=== PATIENT | female | born 1980 | race Caucasian/White ===

== ENCOUNTER 2024-02-02 20:50 | Emergency (ER) | payer OTHER, SELFPAY ==
[2024-02-02 20:53] VITALS: BP 117/81
[2024-02-02 21:05] LABS: % Basophils 0.7 % (0-2); % Eosinophils 3.8 % (0-6); % Immature Granulocytes 0.3 % (0-0.5); % Lymphocytes 25.5 % (20.5-51.1); % Monocytes 5.3 % (1.7-9.3); % Neutrophils 64.4 % (42.2-75.2); Absolute Basophils 0.1 10^3/uL (0-0.2); Absolute Eosinophils 0.3 10^3/uL (0-0.7); Absolute Lymphocytes 1.9 10^3/uL (1.2-3.4); Absolute Monocytes 0.4 10^3/uL (0.1-0.6); Absolute Neutrophils 4.8 10^3/uL (1.4-6.5); Hematocrit 33.2 % (37.0-47.0); Hemoglobin 11.4 g/dL (12.0-16.0); Mean Corp Hgb Conc. 34.3 g/dL (33.0-37.0); Mean Corpuscular Hgb 29.3 pg (27.0-31.0); Mean Corpuscular Volume 85.3 fL (81.0-99.0); Mean Platelet Volume 9.6 fL (7.4-10.4); Nucleated Red Blood Cells % 0 %; Platelet Count 269 10^3/uL (130-400); Red Blood Cell Count 3.89 10^6/uL (4.20-5.40); White Blood Cell Count 7.4 10^3/uL (4.8-10.8)
[2024-02-02 21:23] LABS: HCG, Serum Qualitative Screen Negative
[2024-02-02 21:27] LABS: ALT (SGPT) 25 U/L (0-35); AST (SGOT) 29 U/L (14-36); Albumin 4.4 g/dl (3.5-5.0); Alkaline Phosphatase 126 U/L (38-126); Blood Urea Nitrogen 15 mg/dl (7-17); Calcium 9.6 mg/dl (8.4-10.2); Carbon Dioxide 27 mmol/L (22-30); Chloride 104 mmol/L (98-107); Glucose 106 mg/dl (70-99); Lipase 223 U/L (23-300); Potassium 4.1 mmol/L (3.5-5.1); Sodium 140 mmol/L (135-145); Total Bilirubin 0.2 mg/dl (0.2-1.3); Total Protein 7.6 g/dl (6.3-8.2); eGFR > 60.00
[2024-02-02 22:00] VITALS: BP 114/85
[2024-02-02 22:10] VITALS: BMI 27.9
--- NOTE | 2024-02-02 22:17 | ED.GENMED ---
History of Present Illness
<DESIREE Marti - Last Filed: 02/02/24 22:27>
General
Chief Complaint: Abdominal Symptoms
Source: patient
Time Seen by Provider: 02/02/24 21:59
Travel History
Have you had any contact with someone who has COVID-19?: No
Do you have any symptoms of coronavirus? Fever > 100 degrees, chills, cough, shortness of breath, sore throat, loss of taste or smell, muscle aches, or headache?: No
History of Present Illness
History of Present Illness:
43 year old female with no significant past medical hx who presents with intermittent mid-lower abdominal pain that began 2 days ago. Pain is sharp and 6/10 in strength on palpation. Pt states pain began with her period on Saturday. Her usual
menstrual pain is with lower back pain and some mild abdominal cramping. Pain is worsened with walking, laughing, and palpation. She takes ibuprofen for pain with moderate relief. Last dose was yesterday. She reports associated decreased appetite
and states she feels tired. She had a BM this morning and states she had to strain. Reports mild lower back pain, which she attributes to her menses. Denies fevers/chills, n/v/d, flank pain, dysuria, chest pain, SOB. Denies recent strenuous
activity. Periods have been regular. She has a hx of c/s in 2013. Pt works in finance.
Review of Systems
<DESIREE Marti - Last Filed: 02/02/24 22:27>
Review of Systems
Allergies reviewed?: Yes
All Other Systems: ROS reviewed and negative except as documented in HPI and ROS
Constitutional: Reports fatigue
EENT: Reports no symptoms
Respiratory: Reports no symptoms
Cardiac: Reports no symptoms
ABD/GI: Reports abdominal pain
: Reports no symptoms
Musculoskeletal: Reports back pain (lower)
Skin: Reports no symptoms
Neurological: Reports no symptoms
Endocrine: Reports no symptoms
Hematologic/Lymphatic: Reports no symptoms
Psychiatric: Reports no symptoms
Phy Exam
<RemyDESIREE Lopes - Last Filed: 02/02/24 22:27>
General Physical Exam
General Presentation: no apparent distress and other (mildly weak-appearing)
General age: appears stated age
General Skin: warm
General Habitus: normal
General Mental: alert
General Hydration: appears well hydrated
Cardiovascular Exam
Cardiovascular Exam: regular rate/rhythm, no edema, no gallop and no murmur
Pulmonary Exam
Pulmonary Exam: lungs clear, no respiratory distress, no rales, no crackles, no rhonchi, no wheezing and no cough
Gastrointestinal Exam
Gastrointestinal Exam: normal bowel sounds, soft, no pulsatile mass and non distended
Palpation: right lower quadrant: Severe tenderness (negative Rovsings, Psoas, Obturator sign)
Neurological Exam
Neurological Exam: alert and oriented x3
Skin Exam
Skin Exam: normal color and warm/dry
Psychiatric Exam
Psychiatric Exam: normal mood/affect
Course
<DESIREE Marti - Last Filed: 02/02/24 22:27>
Orders/Labs/Results
Orders:
Orders
02/02/24 20:54
Test Result ONCE
02/02/24 20:59
Beta Hcg Serum Qualitative Screen [HCG, Serum Qualitative Screen] Urgent
Complete Blood Count/With Diff Urgent
Comprehensive Metabolic Panel Urgent
Lipase Urgent
02/02/24 22:30
0.9% Sodium Chloride 1000 ml [Nss] 1,000 ml IV BOLUS
Ketorolac [Toradol] 30 mg IV NOW STA
02/03/24 00:00
CT Abd/pelvis W Iv Cont Urgent
Reason For Exam: 2 d RLQ, suprapubic abd pain
02/03/24 01:01
US Pelvis W Transvag Combined Urgent
Reason For Exam: 3 day hx pelvic pain, RLQ pain
Abnormal Lab Results
02/02/24
20:59
RBC 3.89 L 10^6/uL
(4.20-5.40)
Hgb 11.4 L g/dL
(12.0-16.0)
Hct 33.2 L %
(37.0-47.0)
Glucose 106 H mg/dl
(70-99)
02/02/24 20:59
02/02/24 20:59
Vital Signs
Initial and Last Documented VS:
Initial Vital Signs
Temp Pulse Resp BP Pulse Ox
98.3 F 72 18 117/81 97
02/02/24 20:53 02/02/24 20:53 02/02/24 20:53 02/02/24 20:53 02/02/24 20:53
Last Documented Vital Signs
Temp Pulse Resp BP Pulse Ox
98.3 F 50 17 132/92 99
02/02/24 20:53 02/03/24 02:14 02/03/24 02:14 02/03/24 02:14 02/03/24 02:14
<Julia Yarbrough, DO - Last Filed: 02/03/24 04:17>
Orders/Labs/Results
Orders:
Orders
02/02/24 20:54
Test Result ONCE
02/02/24 20:59
Beta Hcg Serum Qualitative Screen [HCG, Serum Qualitative Screen] Urgent
Complete Blood Count/With Diff Urgent
Comprehensive Metabolic Panel Urgent
Lipase Urgent
02/02/24 22:30
0.9% Sodium Chloride 1000 ml [Nss] 1,000 ml IV BOLUS
Ketorolac [Toradol] 30 mg IV NOW STA
02/03/24 00:00
CT Abd/pelvis W Iv Cont Urgent
Reason For Exam: 2 d RLQ, suprapubic abd pain
02/03/24 01:01
US Pelvis W Transvag Combined Urgent
Reason For Exam: 3 day hx pelvic pain, RLQ pain
Abnormal Lab Results
02/02/24
20:59
RBC 3.89 L 10^6/uL
(4.20-5.40)
Hgb 11.4 L g/dL
(12.0-16.0)
Hct 33.2 L %
(37.0-47.0)
Glucose 106 H mg/dl
(70-99)
02/02/24 20:59
02/02/24 20:59
Vital Signs
Initial and Last Documented VS:
Initial Vital Signs
Temp Pulse Resp BP Pulse Ox
98.3 F 72 18 117/81 97
02/02/24 20:53 02/02/24 20:53 02/02/24 20:53 02/02/24 20:53 02/02/24 20:53
Last Documented Vital Signs
Temp Pulse Resp BP Pulse Ox
98.3 F 50 17 132/92 99
02/02/24 20:53 02/03/24 02:14 02/03/24 02:14 02/03/24 02:14 02/03/24 02:14
<DESIREE Marti - Last Filed: 02/02/24 22:27>
MDM/Problems Addressed
Differential Diagnosis Includes:
appendicitis, ovarian cyst, ovarian torsion, SBO, abdominal muscle strain
MDM/Problems Addressed:
43 year old female who presents with mid-lower abdominal pain that began 2 days ago.
<DESIREE Marti - Last Filed: 02/02/24 22:27>
*Critical Care Note
Total Time (30-74mins, 75-104mins- exclusive of procedures): Not Applicable
<Julia Yarbrough DO - Last Filed: 02/03/24 04:17>
*Radiology
Radiology exam reviewed: radiology read reviewed
*Pulse Oximetry
Patient hypoxic: no
ED Attending Note
<Radha BlankenshipDESIREE glass - Last Filed: 02/02/24 22:27>
-
Portions of this chart may have been created with voice recognition software.� Occasional wrong word or��sound alike� substitutions may have occurred due to the inherent limitations of voice recognition software.
<Julia Yarbrough DO - Last Filed: 02/03/24 04:17>
ED Attending Note
Patient seen and examined by attending physician: Yes
I performed the substantive portion of visit, reviewed & personally made and approve the management plan that is documented in note by myself or CARSON.: Yes
I performed a history and physical exam of patient and discussed management with resident, I reviewed resident's note and agree with documented findings and plan of care.: Yes
ED Attending Note:
This is a 43-year-old woman who has no significant past medical history save for mild iron deficiency anemia. She complains of 2-day history of generalized lower abdominal pain, intermittent and somewhat cramping in nature. Lower abdominal pain is
worse with ambulation worse when driving over bumpy roads. No history of similar episodes of pain in the past. She did take Advil twice yesterday with moderate improvement but has not taken anything for pain today and notes persistent lower
abdominal pain. She denies nausea or vomiting but does admit to mildly decreased appetite over the past 2 days. She has not had a fever nor chills. No diarrhea nor constipation. She did pass a normal bowel movement today without change in pain.
She denies dysuria and urgency nor hematuria. No back pain or flank pain.
Her menstrual period began 2 days ago, normal and on time. She generally does not have menstrual cramps with her menses which for the most part remain regular, monthly in nature. She generally bleeds for 2 to 3 days.
She is sexually active, 1 partner�her .
She has surgical history for 2 previous C-sections most recently 2013 as well as a D and E for endometrial polyp removal prior to her pregnancies.
GENERAL: 43-year-old woman appears her stated age, bright and alert, pleasant, appears in no acute distress. is accompanying. Vital signs within normal limits.
EYE: anicteric
NECK: Supple, nontender, no meningismus, no significant adenopathy.
ENT: oral mucosa is moist.
CARDIAC: Regular rate and rhythm. no murmur.
LUNGS: Clear breath sounds bilaterally, no acute respiratory distress, no wheezes/rales/rhonchi
ABDOMEN: Soft, nondistended, moderate tenderness to palpation suprapubic as well as right lower quadrant, minimal tenderness left lower quadrant, no r/g, no cvat. normoactive BS.
NEUROLOGICAL: Alert and oriented x3, no focal neuro deficits. Gait is fleming and steady.
SKIN: Warm and dry, normal color, skin intact. No rash.
MUSCULOSKELETAL: No C/C/E. peripheral pulses are full and equal b/l. No palpable tenderness.
PSYCH: Normal and appropriate interaction.
Concern for acute appendicitis, ovarian cyst, ovarian torsion, partial small bowel obstruction, dysmenorrhea. Patient has had no UTI symptoms, no flank pain UTI, ureteric stone are less likely.
Labs thus far are unremarkable with normal white blood cell count, mild anemia with hemoglobin of 11.4. Unremarkable chemistries. hCG is negative.
Will medicate for pain with Toradol and plan for CT of the abdomen pelvis.
02/03/2024 0414 AM
Patient has been resting comfortably after 1 IV dose of Toradol.
CT abdomen pelvis shows no acute findings. There is note of cholelithiasis without evidence of cholecystitis. Patient continues to have no tenderness right upper quadrant. Bulky fibroid uterus. No free fluid nor free air.
Due to suprapubic, right lower quadrant abdominal pain, concern for ovarian cyst, torsion thus pelvic ultrasound obtained which shows no acute findings.
There is note of a 1.7 cm hemorrhagic follicle versus small cyst of the right ovary. Ovaries otherwise appear normal with normal blood flow demonstrated bilaterally. Intramural uterine fibroid measuring 3 x 3 x 3.5 cm along with additional
probable small exophytic fibroids. Endometrial complex 6 mm in thickness which is within normal limits.
I suspect lower abdominal pain may be dysmenorrhea in nature, less likely related to small incidental right ovarian cyst.
Incidental cholelithiasis. Patient has had no upper abdominal pain.
She does admit that Advil has been effective for her pain and recommend she continue with Advil. Can also try heating pad. Prompt follow-up with PCP as well as personnel research psychologist.
Return precautions discussed.
Discharge Plan
Departure
Patient Disposition: Home (Routine Discharge)
Date of Disposition: 02/03/24
Time of Disposition: 04:11
Patient with high blood pressure during this ER visit?: No
Condition: Good
Discharge Problem:
Acute pelvic pain, female, Dysmenorrhea
Instructions: Menstrual Cramps (DC)
Referrals:
Héctor Mariscal MD [Family Provider] - Call in 1-3 days for appt
Activity Restrictions/Additional Instructions:
Continue Advil as needed for pain.
You can also try a heating pad to your lower abdomen for comfort.
Follow-up with your personnel research psychologist for recheck especially if lower abdominal pain recurs with each menstrual period or if it persists despite menses.
Interventions
Interventions:
*General Assessment Last Done: 02/02/24 22:06
*Neglect/Abuse Screening Last Done: 02/02/24 22:06
ED- Fall Risk Assessment Last Done: 02/02/24 22:05
*ED COVID-19 Vaccine History Last Done: 02/02/24 22:10
[facility] Assessment Last Done: 02/02/24 22:03
Discharge Date and Time
Print Language: [id number]
[2024-02-02] MEDS: TORADOL 30 MG IV (22:36)
[2024-02-02] MEDS: NSS 1000 IV (22:38)
[2024-02-02 23:51] VITALS: BP 110/82
[2024-02-03 02:14] VITALS: BP 132/92
== END 2024-02-03 04:23 | disposition home or self-care (01) ==
LOC: EMR 20:50
PROVIDERS: Emergency Medicine; EMERGENCY PHYSICIAN Emergency Medicine; FAMILY PHYSICIAN Internal Medicine
DX: R10.2 Pelvic and perineal pain (principal); N94.6 Dysmenorrhea, unspecified
CPT/HCPCS: 99285; 96374; 96361; 74177; 76830; 76856; 80053; 83690; 84703; 85025; Q9967

== ENCOUNTER → 2024-03-23 15:32 | Outpatient (REF) | payer OTHER, SELFPAY ==
[2024-03-27 04:36] LABS: HPV, High Risk Not Detected; HPV, High Risk Source Anal
== END ==
LOC: CLAB 15:32
PROVIDERS: ATTENDING PHYSICIAN Surgery
DX: Z86.19 Personal history of other infectious and parasitic diseases (principal)
CPT/HCPCS: 87624; 88112

== ENCOUNTER 2025-02-24 06:27 | Day surgery (SDC) | payer OTHER, SELFPAY | END 2025-02-24 14:10 | disposition home or self-care (01) | LOC: GI 06:27 | PROVIDERS: ATTENDING PHYSICIAN Surgery | DX: Z12.11 Encounter for screening for malignant neoplasm of colon (principal); K62.5 Hemorrhage of anus and rectum; K64.9 Unspecified hemorrhoids | CPT/HCPCS: G0121 ==